=== PATIENT | male | born 1950 | race Caucasian/White ===

== ENCOUNTER 2016-06-11 13:40 | Outpatient (CLI) | payer OTHER ==
[2016-06-11 14:30] LABS: eGFR (African) > 60; eGFR (Non-African) > 60
== END 2016-06-11 13:42 ==
LOC: LAB 13:40
PROVIDERS: ATTEND Family Medicine
DX: Z12.5 Encounter for screening for malignant neoplasm of prostate (principal); Z00.00 Encounter for general adult medical examination without abnormal findings
CPT/HCPCS: 36415; 80053; 80061; 84153

== ENCOUNTER 2017-02-13 11:28 | Outpatient (CLI) | payer OTHER | END 2017-02-13 11:30 | LOC: OUT 11:28 | PROVIDERS: ATTEND Colon & Rectal Surgery | DX: Z12.11 Encounter for screening for malignant neoplasm of colon (principal) | CPT/HCPCS: 99212 ==

== ENCOUNTER 2018-12-13 14:32 | Inpatient (IN) | payer OTHER ==
--- NOTE | 2018-12-13 14:41 | ED Physician Documentation ---
General Adult - HISTORIAN Historian: patient - HPI Stated Complaint: abdominal distention and pain Chief Complaint: Abdominal Pain Onset: days ago (1) Timing: still present Severity: moderate Further Comments: yes (He states he has not had a bowel movement in 3 days. He tried OTC meds for constipation with minimal results. He states he feels pain in mid abdomen and distention making it feel hard to get a deep breath. He denies any other complaints) - ROS CONST: no problems (He states he has been constipated for 3-4 days. He states he has tried OTC med with only mild results this am. He feels distended and this is making it hard to feel he gets a good deep breath denies any chest pain He does note abdominal pain mid abdomen ) GI/: abdominal pain. denies: vomiting (constipation ), nausea, diarrhea - PAST HX Past History: hypertension Allergies/Adverse Reactions: Allergies Allergy/AdvReac Type Severity Reaction Status Date / Time No Known Allergies Allergy Verified 12/13/18 14:45 Home Medications: Ambulatory Orders Medication Instructions Recorded Finasteride [Proscar] 5 mg PO DAILY 12/13/18 Metoprolol Succinate [Toprol Xl] 25 mg PO DAILY 12/13/18 Tamsulosin HCl 0.4 mg PO DAILY 12/13/18 Warfarin Sodium 7.5 mg PO DAILY 12/13/18 Warfarin Sodium [Coumadin] 1 mg PO 1800 12/13/18 - SOCIAL HX Smoking History: non-smoker Alcohol Use: none Drug Use: none - FAMILY HX Family History: No - REVIEWED ASSESSMENTS Nursing Assessment Reviewed: Yes Vitals Reviewed: Yes Progress - Progress Progress: 1525: states pain is now 10/10 and is requesting pain med. Discussed findings and will need further work up he is agreeable DG 1558: Mild improvement in pain DG 1639: States pain is still increasing and cannot lay flat on the CT table due to pain DG 1706: discussed current results and he states his pain is now approx 4/10 DG 1728: call into spa concierge provider L Weekly CRIMINAL RECORDS TECHNICIAN she is agreeable to admitting pt for pancreatitis DG ED Results Lab/Radiology - Orders Orders: ED Orders Category Date Time Status ABD SERIES [ABD SERIES PA CHEST] [RAD] Stat Exams 12/13/18 Ordered General Adult Physical Exam - PHYSICAL EXAM GENERAL APPEARANCE: no distress EENT: eye inspection normal, no signs of dehydration NECK: normal inspection RESPIRATORY: no resp distress, chest non-tender, breath sounds normal CVS: reg rate & rhythm, heart sounds normal ABDOMEN: tenderness (mid abdomen "just pain" when asked him to describe the pain ), decreased BS, distended, other (not soft although not firm ) BACK: normal inspection, no CVA tenderness SKIN: warm/dry, normal color EXTREMITIES: non-tender, normal range of motion, no evidence of injury NEURO: oriented X3 Discharge Clincal Impression: Pancreatitis Qualifiers: Chronicity: acute Pancreatitis type: other Acute pancreatitis complication: unspecified Qualified Code(s): K85.80 - Other acute pancreatitis without necrosis or infection Referrals: Patricia Ramirez MD [Primary Care Provider] - 2 Days Condition: Fair Disposition: 09 ADMITTED INPATIENT Decision to Admit: [id number] Date of Decison to Admit: 12/13/18 Decision Time: 17:31
--- NOTE | 2018-12-13 15:13 | Diagnostic Imaging Report ---
YAMINI SÁNCHEZ [facility] [address] [facility] [address] [place], [place]. [address] Report Submission Date: Dec 13, 2018 3:10:57 PM CDT Patient Study Name: ZURI MUÑOZ Date: Dec 13, 2018 2:38:25 PM CDT Modality Type: DX Gender: M Description: ABD SERIES PA CHEST : 54 Institution: [facility] Physician: YAMINI SÁNCHEZ ABDOMEN SERIES WITH PA CHEST HISTORY: CENTRALIZED ABDOMINAL PAIN AND BLOATING FOR 2 DAYS. FINDINGS: PA chest x-ray demonstrates lungs to be clear of focal infiltrates and expanded bilaterally. Minimal scarring in the left lung base is seen. Cardiac silhouette and bony thorax are unremarkable. Supine and erect abdomen demonstrates mild gaseous distention of the stomach. Gallstones in the right upper quadrant present. Bones of the region are within normal limits. The bowel pattern is otherwise unremarkable. New no other focal abnormality is seen. IMPRESSION: Cholelithiasis. Unremarkable acute abdomen series otherwise. Electronically signed on Dec 13, 2018 3:10:57 PM CDT by: Jamar WINTER
[2018-12-13] MEDS ORDERED: 0.9 % SODIUM CHLORIDE 1,000 ML IV ONE (15:19)
[2018-12-13] MEDS ORDERED: KETOROLAC TROMETHAMINE 30 MG/1ML VIAL IV ONE (15:19)
[2018-12-13 16:27] LABS: SEGMENTED NEUTROPHILS % 90 % (39-79)
[2018-12-13 16:33] LABS: eGFR (Non-African) > 60
[2018-12-13] MEDS ORDERED: fentaNYL CITRATE/PF 100 MCG/2 ML INJ. IVP ONE (16:37)
[2018-12-13 18:02] VITALS: BMI 37.4
--- NOTE | 2018-12-13 18:08 | Diagnostic Imaging Report ---
YAMINI SÁNCHEZ [facility] [address] Replaced By [facility] [address] [place], [place]. [address] Report Submission Date: Dec 13, 2018 5:14:45 PM CDT Patient Study Name: ZURI MUÑOZ Date: Dec 13, 2018 4:50:35 PM CDT Modality Type: CT\SR Gender: M Description: CT ABD PELVIS W/ CON : 54 Institution: [facility] Physician: YAMINI SÁNCHEZ CT ABDOMEN PELVIS HISTORY: SEVERE ABDOMINAL PAIN AND BLOATING FOR 2 DAYS. TECHNIQUE: Scans through the abdomen and pelvis were obtained following intravenous contrast administration of 90 mL of omnipaque. FINDINGS: Lung parenchyma and cardiovascular structures in the chest included on the study are normal. Liver, spleen and adrenal glands are normal. A gallstone is present in a contracted gallbladder. Edema about the pancreas is seen consistent with pancreatitis. The pancreas otherwise is unremarkable. Kidneys are normal. No periaortic, periiliac, or inguinal adenopathy is seen. Uterus and bladder are normal. Mild diverticular changes of the sigmoid colon are present but the bowel content in the abdomen and pelvis is otherwise unremarkable without inflammatory process. Edema from the pancreas extends into the right upper abdominal mesentery. Bones of the region show degenerative changes without acute process. IMPRESSION: Edema about the pancreas extending into the right upper abdominal mesentery consistent with pancreatitis. Cholelithiasis. No other significant abnormality seen. Electronically signed on Dec 13, 2018 5:14:45 PM CDT by: Jamar WINTER
[2018-12-13] MEDS: fentaNYL CITRATE/PF 100 MCG/2 ML INJ. IV PRN ×2 (18:12→21:50)
[2018-12-13] MEDS: 0.9 % SODIUM CHLORIDE 1,000 ML IV SCH (18:12)
[2018-12-13] MEDS ORDERED: 0.9 % SODIUM CHLORIDE 50 ML IV ONE (18:20)
[2018-12-13] MEDS ORDERED: cefTRIAXone SODIUM 1 GM INJ ONE (18:20)
[2018-12-13] MEDS: cefTRIAXone SODIUM 1 GM in 0.9 % SODIUM CHLORIDE 50 ML IV SCH (18:23)
[2018-12-13] MEDS: ACETAMINOPHEN 1,000 MG/100 ML INJ IV PRN (19:45)
[2018-12-14] MEDS ORDERED: fentaNYL CITRATE/PF 100 MCG/2 ML INJ. ONE (01:28)
[2018-12-14] MEDS: fentaNYL CITRATE/PF 100 MCG/2 ML INJ. IV PRN (01:39)
[2018-12-14] MEDS: ACETAMINOPHEN 1,000 MG/100 ML INJ IV PRN (02:02)
[2018-12-14] MEDS ORDERED: PANTOPRAZOLE SODIUM INJ. 40 MG VIAL ONE (03:28)
[2018-12-14] MEDS: 0.9 % SODIUM CHLORIDE 1,000 ML IV SCH ×2 (04:14→15:28)
[2018-12-14] MEDS: PANTOPRAZOLE SODIUM 40 MG in SODIUM CHLORIDE 0.9 % (FLUSH) 10 ML IVP SCH ×3 (05:49→17:43)
[2018-12-14 06:37] LABS: BASOPHILS % 1.2 % (0.0-1.5); NEUTROPHILS # 20.1 # k/uL (1.4-7.7); eGFR (Non-African) > 60
--- NOTE | 2018-12-14 06:42 | History and Physical Report ---
History of Present Illnes - History of Present Illness Reason for Visit: PANCREATITIS History of Present Illness: Patient is a 68-year-old male who presents to the ER with c/o severe abdominal pain. He states he has not had a bowel movement in 3 days. He tried OTC meds for constipation with minimal results. He states he feels pain in mid abdomen and distention making it feel hard to get a deep breath. He denies any other complaints. Abdominal CT was done in the ER and diagnosed with Pancreatitis. Patient states that he sees Dr. Myers here in town. Patients admits to drinking heavily when at home but does not do it every day (he states that he is going to quit)- he admits to tobacco use but states he does not smoke everyday. He denies any chest pain. He states he feels short of breath because his stomach is full. - Past Medical History Cardiac: AFIB, HTN Renal/: Benign prostatic enlarg. - Past Surgical History Past Surgical History: Cataract Removal, Tonsillectomy - Past Family History Father Family History: Cancer (prostate) - Past Social History Smoke: <1 pack per day Alcohol: Heavy Drugs: None Lives: Alone Domestic Violence: Negative - Health Maintenance Health Maintenance: Cholesterol, Tetanus, Colonoscopy Influenza Vaccine: No Pneumonia Vaccine: No Resuscitation Status: Resusciation Status Resuscitation Status Full Code Review of Systems - Review of Systems Constitutional: negative: Fever, Chills Eyes: negative: pain, redness ENT: negative: Nose Discharge, Nose Congestion Respiratory: Shortness of Breath (r/t pain). negative: Cough Cardiovascular: negative: Chest Pain, Edema, Light Headedness Gastrointestinal: Nausea, Abdominal Pain. negative: Vomiting Genitourinary: Frequency (at night) Musculoskeletal: negative: Back Pain Skin: negative: Rash Neurological: negative: Weakness - Medications/Allergies Allergies/Adverse Reactions: Allergies Allergy/AdvReac Type Severity Reaction Status Date / Time No Known Allergies Allergy Verified 12/13/18 14:45 Home Medications: Home Medications Finasteride [Proscar] 5 mg PO DAILY 12/13/18 Metoprolol Succinate [Toprol Xl] 25 mg PO DAILY 12/13/18 Tamsulosin HCl 0.4 mg PO DAILY 12/13/18 Warfarin Sodium 7.5 mg PO DAILY 12/13/18 Warfarin Sodium [Coumadin] 1 mg PO 1800 12/13/18 Current Inpatient Medications: Current Inpatient Medications Acetaminophen (Ofirmev) 1,000 mg IV Q6H PRN PRN Reason: pain Stop: 01/12/19 19:19 Last Admin: 12/14/18 02:02 Dose: 1,000 mg Fentanyl Citrate (Sublimaze) 50 mcg IV Q4H PRN PRN Reason: MILD TO MOD PAIN (1-7 SCALE) Stop: 01/12/19 17:40 Last Admin: 12/14/18 01:39 Dose: 50 mcg Finasteride (Proscar) 5 mg PO DAILY HE Stop: 01/13/19 08:59 Ceftriaxone Sodium 1 gm/ (Sodium Chloride) 50 mls @ 100 mls/hr IV DAILY HE Stop: 01/12/19 17:59 Last Admin: 12/13/18 18:23 Dose: 100 mls/hr Sodium Chloride (Normal Saline) 1,000 mls @ 100 mls/hr IV Q10H HE Stop: 01/12/19 17:44 Last Admin: 12/14/18 04:14 Dose: 100 mls/hr Pantoprazole Sodium 40 mg/ (SODIUM CHLORIDE 0.9 % (FLUSH)) 10 mls @ 300 mls/hr IVP 717 [facility] Stop: 01/13/19 06:59 Last Admin: 12/14/18 05:52 Dose: 300 mls/hr Miscellaneous (Metoprolol Succinate [Toprol Xl]) 25 mg PO DAILY [facility] Stop: 01/13/19 08:59 Miscellaneous (Warfarin Sodium [Warfarin Sodium]) 7.5 mg PO 1800 [facility] Stop: 01/13/19 17:59 Miscellaneous (Chem Sticks) 1 each [facility] CHEMQID HE Stop: 01/12/19 20:59 Last Admin: 12/14/18 06:31 Dose: 1 each Tamsulosin HCl (Flomax) 0.4 mg PO DAILY [facility] Stop: 01/13/19 08:59 Warfarin Sodium (Coumadin) 1 mg PO 1800 [facility] Stop: 01/13/19 17:59 Exam - Exam Vital Signs: Vital Signs (72 hours) 12/13/18 12/13/18 12/13/18 14:32 17:36 17:38 Temperature 98.4 F 98.1 F 98.1 F Pulse Rate [ Apical] Pulse Rate [ 76 85 Pulse ox] Pulse Rate [ 117 H Right] Respiratory 26 H 18 20 Rate Blood Pressure 176/98 162/108 186/100 [Right Arm] O2 Sat by Pulse 97 95 96 Oximetry 12/13/18 12/13/18 12/13/18 17:59 21:37 21:39 Temperature 98.1 F 94.6 F L Pulse Rate [ 104 H Apical] Pulse Rate [ 85 Pulse ox] Pulse Rate [ 117 H Right] Respiratory 20 20 Rate Blood Pressure 186/100 159/104 [Right Arm] O2 Sat by Pulse 96 96 96 Oximetry 12/13/18 12/14/18 12/14/18 22:00 01:00 01:47 Temperature 97.6 F Pulse Rate [ 104 H 114 H Apical] Pulse Rate [ 85 Pulse ox] Pulse Rate [ 117 H Right] Respiratory 20 20 Rate Blood Pressure 171/100 [Right Arm] O2 Sat by Pulse 95 95 Oximetry 12/14/18 12/14/18 12/14/18 02:00 05:28 05:55 Temperature 98.4 F Pulse Rate [ 114 H 114 H 114 H Apical] Pulse Rate [ 85 85 Pulse ox] Pulse Rate [ 117 H 117 H Right] Respiratory 20 20 22 Rate Blood Pressure 162/90 [Right Arm] O2 Sat by Pulse 95 Oximetry General: Alert, Oriented to Person, Oriented to Place, Oriented to Time, Cooperative, Mild distress, Obese HEENT: Mouth Mucous membr. moist/[place], Nose Mucous membr. moist/[place] Neck: Normal Range of Motion Carotids: No bruit Lungs: Clear to auscultation, Normal air movement, Speaks full Sentences Cardiovascular: Normal S1, Normal S2, Tachycardia Peripheral Edema: None Peripheral Pulses: 2+ Abdomen: Distended, Decreased Bowel Sounds Integumentary: Warm, Dry, Pale Extremities: No edema, Normal pulses, No tenderness/swelling Neurological: Normal speech, Strength Equal Bilat Psych/Mental Status: Mental status NL, Appropriate Affect - Laboratory Results Laboratory Results: Laboratory Results 12/13/18 12/13/18 12/13/18 15:25 15:25 15:25 WBC 17.60 H RBC 5.48 H Hgb 18.3 H Hct 54.5 H MCV 100.0 MCH 33.5 MCHC 33.6 RDW 13.0 Plt Count 279 Neut % (Auto) Lymph % (Auto) Barber % (Auto) Eos % (Auto) Baso % (Auto) Neut # (Auto) Lymph # (Auto) [place] # (Auto) Eos # (Auto) Baso # (Auto) Seg Neutrophils % 90 H Lymphocytes % 5 L Monocytes % 5 PT 20.7 H INR 2.00 H Sodium 140 Potassium 3.9 Chloride 98 Carbon Dioxide 25 Anion Gap 20.9 BUN 17 Creatinine 1.24 Estimated Creat Clear 97 Est GFR ( Amer) > 60 Est GFR (Non-Af Amer) > 60 Glucose 174 H Calcium 9.5 Total Bilirubin 1.9 H AST 30 ALT 15 Alkaline Phosphatase 80 Total Protein 8.4 H Albumin 4.8 Amylase 1055 H Lipase > 6000 H 12/14/18 12/14/18 05:23 05:23 WBC 23.00 H RBC 5.10 Hgb 17.3 Hct 51.2 MCV 100.0 MCH 33.9 MCHC 33.7 RDW 12.8 Plt Count 243 Neut % (Auto) 87.6 H Lymph % (Auto) 3.7 L Barber % (Auto) 6.1 Eos % (Auto) 1.4 Baso % (Auto) 1.2 Neut # (Auto) 20.1 H Lymph # (Auto) 0.9 Barber # (Auto) 1.4 H Eos # (Auto) 0.3 Baso # (Auto) 0.3 Seg Neutrophils % Lymphocytes % Monocytes % PT INR Sodium 138 Potassium 4.1 Chloride 100 Carbon Dioxide 28 Anion Gap 14.1 BUN 20 Creatinine 1.02 Estimated Creat Clear 126 Est GFR ( Amer) > 60 Est GFR (Non-Af Amer) > 60 Glucose 146 H Calcium 8.5 Total Bilirubin 1.8 H AST 45 ALT 20 Alkaline Phosphatase 61 Total Protein 6.8 Albumin 3.8 Amylase 843 H Lipase 5885 H Assessment/Plan - Assessment/Plan (1) BPH associated with nocturia Status: Acute Current Visit: Yes Assessment: Frequent urination Plan: Will continue Proscar and flomax (2) Atrial fibrillation Status: Acute Current Visit: Yes Assessment: Patient has been tachycardic > 117; denies any chest pain Plan: Will continue warfarin; will place patient on campus monitor (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 Status: Acute Current Visit: Yes Assessment: INR 2.0 Plan: Will continue warfarin therapy (4) Pancreatitis Status: Acute Current Visit: Yes Qualifiers: Chronicity: acute Pancreatitis type: alcohol induced Acute pancreatitis complication: unspecified Qualified Code(s): K85.20 - Alcohol induced acute pancreatitis without necrosis or infection Assessment: Patient c/o abdominal pain; nausea; WBC >71935; Amylase >1055, Lipase >6000, and blood sugar 174 Plan: Will continue with IV hydration, IV pain medications, IV Protonix, will treat potential alcohol induced pancreatitis with Folic acid, B12, and thiamine We will monitor CBC, BMP, Amylase, Lipase, Mg, Ca, and blood sugars We will keep blood sugars below 150 VTE Assessment - RISK FACTOR SCORE VTE RISK FACTOR SCORES: AGE OVER 60 YEARS, OBESITY, OTHER (pancreatitis) - RISK VTE HIGH RISK: SCORE OF 3-4 (RISK PROXIMAL DVT 4-8%) PROPHYLAXIS NEEDED (Patient is on warfarin, ambulation,)
[2018-12-14] MEDS ORDERED: METOPROLOL SUCCINATE 50 MG TAB.ER.24H PO ONE (07:53)
[2018-12-14] MEDS ORDERED: cefTRIAXone SODIUM 1 GM INJ ONE (07:53)
[2018-12-14] MEDS ORDERED: 0.9 % SODIUM CHLORIDE 50 ML IV ONE (07:54)
[2018-12-14] MEDS: cefTRIAXone SODIUM 1 GM in 0.9 % SODIUM CHLORIDE 50 ML IV SCH (08:10)
[2018-12-14] MEDS: MORPHINE SULFATE 4 MG/ML VIAL IV PRN ×2 (08:15→13:38)
[2018-12-14] MEDS: METOPROLOL SUCCINATE 50 MG TAB.ER.24H PO SCH ×2 (08:18→19:37)
[2018-12-14] MEDS: TAMSULOSIN HCL 0.4 MG CAP.ER.24H PO SCH (08:18)
[2018-12-14] MEDS: FINASTERIDE 5 MG TABLET PO SCH (08:19)
[2018-12-14] MEDS ORDERED: THIAMINE HCL 200 MG/2 ML VIAL IV ONE (14:42)
[2018-12-14] MEDS ORDERED: LISINOPRIL 10 MG TABLET PO ONE (15:00)
[2018-12-14] MEDS: CYANOCOBALAMIN (VITAMIN B12) 1,000 MCG TABLET PO SCH (15:24)
[2018-12-14] MEDS: FOLIC ACID 1 MG TABLET PO SCH (15:24)
[2018-12-14] MEDS: WARFARIN SODIUM 1 MG TABLET PO SCH (17:34)
[2018-12-14] MEDS: WARFARIN SODIUM 2.5 MG TABLET PO SCH (17:35)
[2018-12-14 17:51] LABS: BASOPHILS % 1.3 % (0.0-1.5); NEUTROPHILS # 21.7 # k/uL (1.4-7.7)
[2018-12-14 18:16] LABS: eGFR (Non-African) > 60
[2018-12-14 18:17] LABS: MAGNESIUM 1.6 mIU/l (1.6-2.3)
[2018-12-15] MEDS: 0.9 % SODIUM CHLORIDE 1,000 ML IV SCH ×3 (01:09→23:13)
[2018-12-15] MEDS: MORPHINE SULFATE 4 MG/ML VIAL IV PRN ×4 (02:20→21:04)
[2018-12-15] MEDS: PANTOPRAZOLE SODIUM 40 MG in SODIUM CHLORIDE 0.9 % (FLUSH) 10 ML IVP SCH ×2 (06:01→16:44)
--- NOTE | 2018-12-15 07:34 | Inpatient Progress Note ---
Subjective - Required Recertification Statement I anticipate X number of days because-include discharge plan: 1 - Review of Systems Events since last encounter: Patient states that he is feeling much better this morning and would like to go home; however patient had initially refused his metoprolol and blood pressure medication yesterday stating "I don't take those"- spoke with patient because his heart rate was 140s and blood pressure was elevated. He finally took his meds as directed. Heart rate remains >100 but is improving. He denies any nausea or vomiting so we will start with clear liquids and advance as tolerated. Showed patient his lab work and explained the reasoning for keeping him another day. He voiced understanding. Staff will get patient up and walking this afternoon. Will continue with IV hydration. General: Denies: Chills, Night Sweats HEENT: Denies: Head Aches, Dysphasia Pulmonary: Denies: Dyspnea Cardiovascular: Denies: Chest Pain, Palpitations, Edema Gastrointestinal: Abdominal Pain. Denies: Nausea, Vomiting Genitourinary: Denies: Dysuria Musculoskeletal: Denies: Back Pain Neurological: Weakness Objective - Exam Vitals and I&O: Vital Signs Temp 99.1 F 12/15/18 06:00 Pulse 113 H 12/15/18 06:00 Resp 20 12/15/18 06:00 BP 140/74 12/15/18 06:00 Pulse Ox 93 12/15/18 06:00 Intake & Output 12/14/18 12/14/18 12/15/18 11:59 23:59 11:59 Intake Total 7181 982 5919 Output Total 150 250 325 Balance 1050 150 875 Intake: IV 6076 176 6013 Left Hand 1200 Right Antecubital 1200 400 Oral 0 0 Output: Urine 150 250 325 Other: Voiding Method Urinal Urinal Urinal # Bowel Movements 0 0 General: Alert, Oriented to Person, Oriented to Place, Oriented to Time, Cooperative, No acute distress, Obese HEENT: Atraumatic, PERRLA, Mouth Mucous membr. moist/[place], Nose Mucous membr. moist/[place] Neck: Supple, +2 carotid pulse wo bruit Lungs: Clear to auscultation, Normal air movement, Speaks full Sentences Cardiovascular: Irregularly Irregular (rate >110) Abdomen: Normal bowel sounds, Soft, No tenderness Extremities: No edema, Normal pulses, No tenderness/swelling Skin: Normal, [place], Warm, Dry Neurological: Normal speech, Strength Equal Bilat, Generalized Weakness Psych/Mental Status: Mental status NL, Mood NL, Appropriate Affect, Intact Judgment - Results Results: Laboratory Results WBC 25.10 K/ul (4.00-12.00) H 12/14/18 17:49 RBC 5.03 M/ul (3.90-5.20) 12/14/18 17:49 Hgb 17.2 g/dL (12.0-18.0) 12/14/18 17:49 Hct 50.6 % (37.0-53.0) 12/14/18 17:49 MCV 101.0 fl (80.0-100.0) H 12/14/18 17:49 MCH 34.2 pg (28.0-34.0) H 12/14/18 17:49 MCHC 34.0 g/dL (30.0-36.0) 12/14/18 17:49 RDW 12.7 % (11.3-14.3) 12/14/18 17:49 Plt Count 198 K/mm3 (130-400) 12/14/18 17:49 Neut % (Auto) 86.4 % (39.0-79.0) H 12/14/18 17:49 Lymph % (Auto) 4.4 % (16.0-50.0) L 12/14/18 17:49 [place] % (Auto) 6.7 % (0.0-11.0) 12/14/18 17:49 Eos % (Auto) 1.2 % (0.0-6.8) 12/14/18 17:49 Baso % (Auto) 1.3 % (0.0-1.5) 12/14/18 17:49 Neut # (Auto) 21.7 # k/uL (1.4-7.7) H 12/14/18 17:49 Lymph # (Auto) 1.1 # k/uL (0.6-4.0) 12/14/18 17:49 Foster # (Auto) 1.7 # k/uL (0.0-0.9) H 12/14/18 17:49 Eos # (Auto) 0.3 # k/uL (0.0-0.6) 12/14/18 17:49 Baso # (Auto) 0.3 # k/uL (0.0-0.5) 12/14/18 17:49 Seg Neutrophils % 90 % (39-79) H 12/13/18 15:25 Lymphocytes % 5 % (16-50) L 12/13/18 15:25 Monocytes % 5 % (0-11) 12/13/18 15:25 PT 20.7 Seconds (8.8-11.9) H 12/13/18 15:25 INR 2.00 (0.80-1.10) H 12/13/18 15:25 Sodium 140 mmol/L (137-145) 12/14/18 17:49 Potassium 4.6 mmol/L (3.5-5.1) 12/14/18 17:49 Chloride 104 mmol/L (98-107) 12/14/18 17:49 Carbon Dioxide 25 mmol/L (22-30) 12/14/18 17:49 Anion Gap 15.6 12/14/18 17:49 BUN 21 mg/dL (9-20) H 12/14/18 17:49 Creatinine 1.07 mg/dL (0.66-1.25) 12/14/18 17:49 Estimated Creat Clear 120 12/14/18 17:49 Est GFR ( Amer) > 60 (60-) 12/14/18 17:49 Est GFR (Non-Af Amer) > 60 (60-) 12/14/18 17:49 Glucose 136 mg/dL (74-106) H 12/14/18 17:49 Calcium 7.8 mg/dL (8.4-10.2) L 12/14/18 17:49 Magnesium 1.6 mIU/l (1.6-2.3) 12/14/18 17:49 Total Bilirubin 1.8 mg/dL (0.2-1.3) H 12/14/18 05:23 AST 45 U/L (15-46) 12/14/18 05:23 ALT 20 U/L (13-69) 12/14/18 05:23 Alkaline Phosphatase 61 U/L (38-126) 12/14/18 05:23 Total Protein 6.8 g/dL (6.3-8.2) 12/14/18 05:23 Albumin 3.8 g/dL (3.5-5.0) 12/14/18 05:23 Amylase 917 U/L (30-110) H 12/14/18 17:49 Lipase 4584 U/L (23-300) H 12/14/18 17:49 Assessment/Plan - Assessment/Plan (1) BPH associated with nocturia Status: Acute Current Visit: Yes Assessment: STable Plan: Will continue with Proscar and Flomax (2) Atrial fibrillation Status: Acute Current Visit: Yes Assessment: patient rate was 140 yesterday; today is 110; denies any chest pain or shortness of breath Plan: Will continue with metoprolol and lisinopril (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 Status: Acute Current Visit: Yes Assessment: Stable; no bleeding or bruising Plan: Will continue with Warfarin (4) Pancreatitis Status: Acute Current Visit: Yes Qualifiers: Chronicity: acute Pancreatitis type: alcohol induced Acute pancreatitis complication: unspecified Qualified Code(s): K85.20 - Alcohol induced acute pancreatitis without necrosis or infection Assessment: Amylase and lipase are decreasing; patient denies any discomfort; denies nausea and vomiting; calcium decreasing; blood sugars stable Plan: Will give IV calcium today; start with clear liquids and advance diet as tolerated; will continue with protonix; IV pain meds prn, and IV antiemetics as needed; will redraw labs in the a.m. If improved; plan to discharge 12/16/18
[2018-12-15] MEDS ORDERED: METOPROLOL TARTRATE 50 MG TABLET ONE (07:45)
[2018-12-15 07:56] LABS: NEUTROPHILS # 18.7 # k/uL (1.4-7.7)
[2018-12-15 08:08] LABS: eGFR (Non-African) 60
[2018-12-15] MEDS ORDERED: CALCIUM GLUCONATE 100 MG/ML VIAL IV ONE (08:20)
[2018-12-15 08:27] LABS: APPEARANCE,URINE CLOUDY (CLEAR); COLOR,URINE AMBER (YELLOW); OCCULT BLOOD,URINE 2+ (NEGATIVE); PH URINE 5.5 (5.0 - 8.0)
[2018-12-15 08:28] LABS: AMORPHOUS SEDIMENT,UR MANY (NEGATIVE)
[2018-12-15] MEDS: CYANOCOBALAMIN (VITAMIN B12) 1,000 MCG TABLET PO SCH (09:09)
[2018-12-15] MEDS: FINASTERIDE 5 MG TABLET PO SCH (09:09)
[2018-12-15] MEDS: TAMSULOSIN HCL 0.4 MG CAP.ER.24H PO SCH (09:09)
[2018-12-15] MEDS: LISINOPRIL 10 MG TABLET PO SCH (09:10)
[2018-12-15] MEDS: METOPROLOL SUCCINATE 50 MG TAB.ER.24H PO SCH (09:13)
[2018-12-15] MEDS ORDERED: CALCIUM GLUCONATE 1,000 MG in 0.9 % SODIUM CHLORIDE 50 ML IV ONE (09:30)
[2018-12-15] MEDS: cefTRIAXone SODIUM 1 GM in 0.9 % SODIUM CHLORIDE 50 ML IV SCH (10:55)
[2018-12-15] MEDS ORDERED: POLYETHYLENE GLYCOL 3350 17 GM POWD.PACK PO SCH (11:00)
[2018-12-15] MEDS: SENNOSIDES/DOCUSATE 8.6/50 MG 1 EACH TABLET PO SCH ×2 (11:00→21:03)
[2018-12-15] MEDS: WARFARIN SODIUM 2.5 MG TABLET PO SCH (17:14)
[2018-12-15] MEDS: WARFARIN SODIUM 1 MG TABLET PO SCH (17:15)
[2018-12-16] MEDS: PANTOPRAZOLE SODIUM 40 MG in SODIUM CHLORIDE 0.9 % (FLUSH) 10 ML IVP SCH (05:25)
[2018-12-16] MEDS: ACETAMINOPHEN 1,000 MG/100 ML INJ IV PRN (05:26)
--- NOTE | 2018-12-16 06:49 | Discharge Summary ---
Discharge Summary - Discharge [facility] Admission Date: 12/13/18 Discharge Date: 12/16/18 Discharge To: Home History of Present Illness: Patient is a 68-year-old male who presents to the ER with c/o severe abdominal pain. He states he has not had a bowel movement in 3 days. He tried OTC meds for constipation with minimal results. He states he feels pain in mid abdomen and distention making it feel hard to get a deep breath. He denies any other complaints. Abdominal CT was done in the ER and diagnosed with Pancreatitis. Patient states that he sees Dr. Myers here in town. Patients admits to drinking heavily when at home but does not do it every day (he states that he is going to quit)- he admits to tobacco use but states he does not smoke everyday. He denies any chest pain. He states he feels short of breath because his stomach is full. Condition at Discharge: Stable Home Medications: Ambulatory Orders Medication Instructions Recorded Finasteride [Proscar] 5 mg PO DAILY 12/13/18 Metoprolol Succinate [Toprol Xl] 25 mg PO DAILY 12/13/18 Tamsulosin HCl 0.4 mg PO DAILY 12/13/18 Warfarin Sodium 7.5 mg PO DAILY 12/13/18 Warfarin Sodium [Coumadin] 1 mg PO 1800 12/13/18 Lisinopril [Prinivil] 20 mg PO DAILY #30 tablet 12/16/18 Trazodone HCl 50 mg PO HS PRN #7 tablet 12/16/18 Consultations this Visit: None Procedures this Visit: None Allergies/Adverse Reactions: Allergies Allergy/AdvReac Type Severity Reaction Status Date / Time No Known Allergies Allergy Verified 12/13/18 14:45 Discharge Summary: Patient is a 68 year old male who was admitted for Pancreatitis. He has done well; pain has been controlled; no nausea or vomiting; he is really wanting to go home today. Discussed taking heart, blood pressure, and warfarin medications as directed. He will follow up with PCP this upcoming week. He knows to start off with clear liquid diet and advance as tolerated. - Final Diagnosis (1) BPH associated with nocturia Problems: Stable Right or Left: Right (2) Atrial fibrillation Problems: Heart rate down to 100 Right or Left: Right (3) senior living current use of anticoagulant Problems: Stable; PT/INR 2.36 Right or Left: Right (4) Pancreatitis Problems: Improving; labs decreasing; not requiring pain meds; no nausea medications Right or Left: Right
[2018-12-16 06:59] LABS: BASOPHILS % 0.8 % (0.0-1.5); NEUTROPHILS # 15.7 # k/uL (1.4-7.7)
[2018-12-16 07:00] LABS: eGFR (Non-African) 52
[2018-12-16] MEDS: TAMSULOSIN HCL 0.4 MG CAP.ER.24H PO SCH (08:33)
[2018-12-16] MEDS: FOLIC ACID 1 MG TABLET PO SCH (08:34)
[2018-12-16] MEDS: LISINOPRIL 10 MG TABLET PO SCH (08:34)
[2018-12-16] MEDS: CYANOCOBALAMIN (VITAMIN B12) 1,000 MCG TABLET PO SCH (08:34)
[2018-12-16] MEDS: METOPROLOL SUCCINATE 50 MG TAB.ER.24H PO SCH (08:34)
[2018-12-16] MEDS: SENNOSIDES/DOCUSATE 8.6/50 MG 1 EACH TABLET PO SCH (08:34)
[2018-12-16] MEDS: FINASTERIDE 5 MG TABLET PO SCH (08:34)
[2018-12-16 08:53] VITALS: BP 136/66
[2018-12-16] MEDS: cefTRIAXone SODIUM 1 GM in 0.9 % SODIUM CHLORIDE 50 ML IV SCH (08:53)
== END 2018-12-16 08:45 | disposition home or self-care (01) | DRG 440 ==
LOC: ED 14:32 → SOUTH 17:33
PROVIDERS: ADMIT Nurse Practitioner Family; ATTEND Nurse Practitioner Family
DX: K85.20 Alcohol induced acute pancreatitis without necrosis or infection (principal); I10 Essential (primary) hypertension; I48.91 Unspecified atrial fibrillation; F17.210 Nicotine dependence, cigarettes, uncomplicated; E66.9 Obesity, unspecified; K59.00 Constipation, unspecified; N40.1 Benign prostatic hyperplasia with lower urinary tract symptoms; R35.1 Nocturia; Z79.01 Long term (current) use of anticoagulants; Z79.899 Other long term (current) drug therapy; Z98.49 Cataract extraction status, unspecified eye; Z80.42 Family history of malignant neoplasm of prostate; Z68.37 Body mass index [BMI] 37.0-37.9, adult
CPT/HCPCS: 36415; 74022; 74177; 80048; 80053; 81002; 82150; 83690; 83735; 85025; 85610; 87040; J0610; J0696; J1885; J2270; J3010; J3411; J7030; Q9967; 96360; 96372; 96374; 99283; 99284; S1016

== ENCOUNTER 2018-12-22 14:34 | Outpatient (CLI) | payer OTHER ==
[2018-12-22 15:16] LABS: eGFR (Non-African) 56
[2018-12-22 15:22] LABS: BASOPHILS % 0.8 % (0.0-1.5)
[2018-12-22 15:23] LABS: SEGMENTED NEUTROPHILS % 89 % (39-79)
--- NOTE | 2018-12-22 15:59 | Diagnostic Imaging Report ---
VADIM GARCIA [facility] [address] [facility] [address] [address] Report Submission Date: Dec 22, 2018 3:55:17 PM CDT Patient Study Name: ZURI MUÑOZ Date: Dec 22, 2018 2:43:23 PM CDT Modality Type: DX Gender: M Description: ABD COMPLETE : 54 Institution: [facility] Physician: VADIM GARCIA 3 views of the abdomen History: ABDOMINAL DISTENTION/SHORTNESS OF AIR X 2 DAYS PATIENT STATES NAUSEA, ABDOMINAL PAIN AND SOA X 2 DAYS comparison: December 13, 2018 Rounded soft tissue density in the pelvis is indeterminate. Gallstone is present. Nonobstructive bowel gas pattern. Minimal left basal atelectasis/patchy infiltrate. Impression: Nonobstructive bowel gas pattern. Cholelithiasis. Electronically signed on Dec 22, 2018 3:55:17 PM CDT by: Sarita WINETR
== END 2018-12-22 14:36 ==
LOC: LAB 14:34
PROVIDERS: ATTEND Nurse Practitioner Family
DX: R53.83 Other fatigue (principal); R06.02 Shortness of breath; R14.0 Abdominal distension (gaseous)
CPT/HCPCS: 36415; 74019; 80053; 82150; 83690; 83880; 85025

== ENCOUNTER 2019-04-16 15:13 | Emergency (ER) | payer OTHER ==
[2019-04-16 15:44] LABS: BASOPHILS % 0.6 % (0.0-1.5); NEUTROPHILS # 6.9 # k/uL (1.4-7.7)
[2019-04-16 15:55] LABS: eGFR (Non-African) > 60
[2019-04-16 15:56] VITALS: BP 183/94
--- NOTE | 2019-04-16 15:58 | ED Physician Documentation ---
Abdominal Pain - HISTORIAN Historian: patient - HPI Stated Complaint: abd pain Chief Complaint: Abdominal Pain Additonal Information: Patient presents to ED with generalized abdominal pain which started around noon today. Patient states he was at the eye doctor when his pain started and he took some mylanta and gas x. He states he had pancreatitis in November and wanted to make sure it had not returned. He denies nausea/vomiting, fever, chills, or diarrhea. He reports normal bowel movement this morning. Onset: hours (3) Duration: waxing, waning Timing: gone now Context: denies: out of country travel, bad food Severity: mild Quality: pain, cramping Associated Symptoms: none. denies: fever, chills, nausea, vomiting Exacerbated by: nothing Relieved by: antacids (mylanta, gas x) - ROS CONST: no problems GI/: none CVS/RESP: denies: shortness of breath EYES/ENT: none MS/SKIN/LYMPH: none NEURO/PSYCH: none - SOCIAL HX Smoking History: non-smoker Alcohol Use: none Drug Use: none - FAMILY HX Family History: none - PAST HX Past History: none Ischemic Bowel Risk Factors: none Other History: none Surgeries/Procedures: none Home Medications: Ambulatory Orders Medication Instructions Recorded Finasteride [Proscar] 5 mg PO DAILY 12/13/18 Metoprolol Succinate [Toprol Xl] 25 mg PO DAILY 12/13/18 Tamsulosin HCl 0.4 mg PO DAILY 12/13/18 Lisinopril [Prinivil] 20 mg PO DAILY #30 tablet 12/16/18 Trazodone HCl 50 mg PO HS PRN #7 tablet 12/16/18 Hydrocodone/Acetaminophen [Amidon 1 each PO Q8 PRN #10 tablet 04/16/19 5-325 Tablet] LevoFLOXacin [Levaquin] 500 mg PO DAILY #5 tablet 04/16/19 Rivaroxaban [Xarelto] 20 mg PO DAILY 04/16/19 Allergies/Adverse Reactions: Allergies Allergy/AdvReac Type Severity Reaction Status Date / Time No Known Allergies Allergy Verified 04/16/19 15:49 - VITAL SIGNS Vital Signs: Vital Signs Temp Pulse Resp BP Pulse Ox 96.7 F L 79 20 183/94 98 04/16/19 15:23 04/16/19 15:54 04/16/19 15:54 04/16/19 15:54 04/16/19 15:54 - REVIEWED ASSESSMENTS Nursing Assessment Reviewed: Yes Vitals Reviewed: Yes ED Results Lab/Radiology - Lab Results Lab Results: Lab Results 04/16/19 04/16/19 04/16/19 15:30 15:30 15:30 WBC 10.20 K/ul K/ul (4.00-12.00) RBC 5.30 M/ul H M/ul (3.90-5.20) Hgb 16.4 g/dL g/dL (12.0-18.0) Hct 48.7 % % (37.0-53.0) MCV 92.0 fl fl (80.0-100.0) MCH 31.0 pg pg (28.0-34.0) MCHC 33.7 g/dL g/dL (30.0-36.0) RDW 12.1 % % (11.3-14.3) Plt Count 294 K/mm3 K/mm3 (130-400) Neut % (Auto) 67.5 % % (39.0-79.0) Lymph % (Auto) 25.5 % % (16.0-50.0) Edgar % (Auto) 3.7 % % (0.0-11.0) Eos % (Auto) 2.7 % % (0.0-6.8) Baso % (Auto) 0.6 % % (0.0-1.5) Neut # (Auto) 6.9 # k/uL # k/uL (1.4-7.7) Lymph # (Auto) 2.6 # k/uL # k/uL (0.6-4.0) Edgar # (Auto) 0.4 # k/uL # k/uL (0.0-0.9) Eos # (Auto) 0.3 # k/uL # k/uL (0.0-0.6) Baso # (Auto) 0.1 # k/uL # k/uL (0.0-0.5) Sodium 142 mmol/L mmol/L (137-145) Potassium 3.4 mmol/L L mmol/L (3.5-5.1) Chloride 103 mmol/L mmol/L (98-107) Carbon Dioxide 28 mmol/L mmol/L (22-30) Anion Gap 14.4 BUN 14 mg/dL mg/dL (9-20) Creatinine 0.90 mg/dL mg/dL (0.66-1.25) Estimated Creat Clear 129 Est GFR ( Amer) > 60 (60 - ) Est GFR (Non-Af Amer) > 60 (60 - ) Glucose 138 mg/dL H mg/dL (74-106) Calcium 9.5 mg/dL mg/dL (8.4-10.2) Total Bilirubin 0.9 mg/dL mg/dL (0.2-1.3) AST 39 U/L U/L (15-46) ALT 19 U/L U/L (4-50) Alkaline Phosphatase 94 U/L U/L (38-126) Total Protein 8.0 g/dL g/dL (6.3-8.2) Albumin 4.7 g/dL g/dL (3.5-5.0) Lipase 42 U/L U/L (23-300) - Radiology Radiology Impressions: Report Submission Date: Apr 16, 2019 4:37:06 PM COSMETICS DEMONSTRATOR Patient Study Name: ZURI MUÑOZ Date: Apr 16, 2019 4:06:05 PM COSMETICS DEMONSTRATOR Modality Type: DX Gender: M Description: ABD SERIES PA CHEST : 54 Institution: [facility] Physician: CHEIKH ARAIZA Exam: Abdominal obstruction series. History: Abdominal pain. The examination is compared to a study dated December 22, 2018. Lung walker are well aerated. Left basilar infiltrates are noted. No pleural effusions are seen. Heart and mediastinal contours are normal with atherosclerotic plaques seen in the aorta. Scattered loops of bowel gas in both large and small intestine is noted. A rounded calcification in the right side of the abdomen is again identified suggestive of a gallstone. No renal calcifications are seen. No organomegaly is seen. No free air is identified. Distention of the stomach is noted. Impression: Left basilar infiltrate. Nonspecific bowel gas pattern. Redemonstration of gallstone. No free air is identified. Electronically signed on Apr 16, 2019 4:37:06 PM COSMETICS DEMONSTRATOR by: Isrrael Enriquez - Orders Orders: ED Orders Category Date Time Status Place IV Lock 1T Care 04/16/19 15:17 Active ABD SERIES PA CHEST [RAD] Stat Exams 04/16/19 Completed CBC/PLATELET/DIFF Routine Lab 04/16/19 15:30 Completed CMP Routine Lab 04/16/19 15:30 Completed LIPASE Stat Lab 04/16/19 15:30 Completed Abdominal Pain Physical Exam - Physical Exam General Appearance: no acute distress, alert EENT: FIGUEROA NECK: supple RESPIRATORY: no resp distress, chest non-tender, breath sounds normal CVS: reg rate & rhythm ABDOMEN: soft, normal bowel sounds, non-tender BACK: no CVA tenderness SKIN: warm/dry, normal color EXTREMITIES: non-tender NEURO: oriented X3, CN's nml as tested, mood/affect nml Vital Signs: Vital Signs Temp Pulse Resp BP Pulse Ox 96.7 F L 79 20 183/94 98 04/16/19 15:23 04/16/19 15:54 04/16/19 15:54 04/16/19 15:54 04/16/19 15:54 Discharge Clincal Impression: Pulmonary infiltrate in left lung on chest x-ray, Gall stones, Biliary colic Prescriptions: Hydrocodone/Acetaminophen [Amidon 5-325 Tablet] 1 each PO Q8 PRN #10 tablet PRN Reason: gall bladder pain LevoFLOXacin [Levaquin] 500 mg PO DAILY #5 tablet Referrals: Kulwinder Myers MD [Primary Care Provider] - 2 Days Additional Instructions: 1. Take antibiotics until gone 2. Follow up with PCP within 1 week. Discuss further evaluation of gall stones/surgical referral 3. Return to ER for new or worsening symptoms Condition: Stable Disposition: 01 HOME, SELF-CARE Decision to Admit: NO Date of Decison to Admit: 04/16/19 Decision Time: 16:46
--- NOTE | 2019-04-16 16:42 | Diagnostic Imaging Report ---
PATIENT MR#: [id number] PATIENT PATIENT NAME: ZURI MUÑOZ DATE OF : 1950 REFERRING PHYSICIAN: Gwendolyn [place] EXAM DATE: 04/16/2019 ACCESSION NUMBER: [id number] EXAM DESCRIPTION: ABD SERIES PA CHEST Exam: Abdominal obstruction series. History: Abdominal pain. The examination is compared to a study dated December 22, 2018. Lung walker are well aerated. Left basilar infiltrates are noted. No pleural effusions are seen. H eart and mediastinal contours are normal with atherosclerotic plaques seen in the aorta. Scattered loops of bowel gas in both large and small intestine is noted. A rounded calcification in the right side of the abdomen is again identified suggestive of a gallstone. No renal calcifications are seen. No org anomegaly is seen. No free air is identified. Distention of the stomach is noted. Impression: Left basilar infiltrate. Nonspecific bowel gas pattern. Redemonstration of gallstone. No free air is identified. Read by: Dr. Irsrael Carrillo Transcribed by: Transcribed Date: Electronically signed by: Dr. Isrrael Carrillo Date signed: 04/16/2019 4:41:18 PM
== END 2019-04-16 17:03 | disposition home or self-care (01) ==
LOC: ED 15:13
DX: K80.70 Calculus of gallbladder and bile duct without cholecystitis without obstruction (principal); R91.8 Other nonspecific abnormal finding of lung field
CPT/HCPCS: 74022; 80053; 83690; 85025; 99283; 99284; S1016